=== PATIENT | female | born 2000 | race Caucasian/White ===

== ENCOUNTER 2019-10-12 06:48 | Inpatient (IN) | payer MEDICAID ==
[~2019-10-12] VITALS: Ht 142.2 cm; Wt 89.8 kg
[2019-10-12] MEDS ORDERED: LACTATED RINGERS 1,000 ML IV SCH (08:56)
[2019-10-12] MEDS ORDERED: LIDOCAINE HCL 1% 20ML VIAL (Pyxis) INJ INFIL SCH (09:00)
[2019-10-12] MEDS ORDERED: BUTORPHANOL TARTRATE 2 MG/ML VIAL IV PRN (09:00)
[2019-10-12] MEDS ORDERED: NALOXONE HCL 0.4 MG/ML 1ML VIAL IM PRN (09:00)
[2019-10-12] MEDS ORDERED: METHYLERGONOVINE MALEATE 0.2 MG/ML IM PRN (09:00)
[2019-10-12 09:42] LABS: CLARITY URINE CLOUDY (CLEAR); COLOR URINE YELLOW (YELLOW); KETONES URINE NEGATIVE (NEGATIVE); LEUKOCYTE ESTERASE URINE 1+ (NEGATIVE); NITRITE URINE NEGATIVE (NEGATIVE); OCCULT BLOOD URINE 3+ (NEGATIVE); PH URINE 6.5 (4.5-8.0); PROTEIN URINE 2+ (NEGATIVE); UROBILINOGEN URINE 0.2 E.U./dL (0.2-1.0)
[2019-10-12 09:42] LABS: BASOPHILS % 0.7 % (0.0-2.0); EOSINOPHILS % 0.6 % (0.0-5.0); HEMATOCRIT. 33.8 % (36.0-48.0); HEMOGLOBIN. 11.5 g/dL (12.0-16.0); LYMPHOCYTES % 20.1 % (20.0-50.0); MEAN CORPUSCULAR HEMOGLOBIN 27.9 pg (28.0-32.0); MEAN CORPUSCULAR VOLUME 82.3 fL (81.0-99.0); MEAN PLATELET VOLUME 9.6 fl (7.4-10.4); MONOCYTES % 7.3 % (2.0-8.0); NEUTROPHILS % 71.3 % (40.0-76.0); PLATELET 277 x1000/uL (130-400); RED BLOOD CELL COUNT 4.11 mill/uL (4.2-5.4); RED CELL DISTRIBUTION WIDTH 13.5 % (11.6-14.6)
[2019-10-12] MEDS: DEXT 5%/LR + PITOCIN 20UNITS/L 1,000 ML IV SCH (09:49)
[2019-10-12 09:50] LABS: INR 0.9; PARTIAL THROMBOPLASTIN TIME 27.5 sec (23.4-31.0); PROTHROMBIN TIME 9.9 sec (9.6-11.0)
[2019-10-12 10:00] LABS: *AMPHETAMINES SCREEN URINE NEGATIVE (NEGATIVE)
[2019-10-12 10:01] LABS: *BARBITURATES SCREEN URINE NEGATIVE (NEGATIVE); *BENZODIAZEPINES SCREEN URINE NEGATIVE (NEGATIVE); *COCAINE SCREEN URINE NEGATIVE (NEGATIVE); METHADONE URINE SCREEN NEGATIVE (NEGATIVE); OPIATES URINE SCREEN NEGATIVE (NEGATIVE); PHENCYCLIDINE URINE SCREEN NEGATIVE (NEGATIVE)
[2019-10-12 10:02] LABS: CANNABINOID URINE SCREEN NEGATIVE (NEGATIVE)
[2019-10-12 10:59] LABS: HEPATITIS B SURFACE ANTIGEN NEGATIVE
[2019-10-12 12:12] LABS: D-DIMER 1.18 mg/L FEU (<0.50)
[2019-10-12 12:20] LABS: CHLORIDE 107 mEq/L (98-107)
[2019-10-12] MEDS: LACTATED RINGERS 1,000 ML IV SCH ×2 (13:18→22:12)
[2019-10-13] MEDS: LACTATED RINGERS 1,000 ML IV SCH (00:29)
[2019-10-13] MEDS ORDERED: ROPIVACAINE HCL 2MG/ML (0.2%) 200ML BOTTLE IR ONE (00:45)
[2019-10-13] MEDS ORDERED: ROPIVACAINE HCL/PF EPIDURAL 200 ML EPI PRN (00:45)
[2019-10-13] MEDS ORDERED: FENTANYL CITRATE/PF 50MCG/ML 2ML VIAL ONE (01:09)
[2019-10-13] MEDS ORDERED: BUPIVACAINE HCL/PF 0.25% (2.5MG/ML) 10ML ONE (01:56)
[2019-10-13 11:25] LABS: BASOPHILS % 0.5 % (0.0-2.0); HEMATOCRIT. 35.2 % (36.0-48.0); HEMOGLOBIN. 11.9 g/dL (12.0-16.0); LYMPHOCYTES % 7.8 % (20.0-50.0); MEAN CORPUSCULAR HEMOGLOBIN 27.9 pg (28.0-32.0); MEAN CORPUSCULAR VOLUME 82.3 fL (81.0-99.0); MEAN PLATELET VOLUME 9.7 fl (7.4-10.4); NEUTROPHILS % 83.7 % (40.0-76.0); PLATELET 264 x1000/uL (130-400); RED BLOOD CELL COUNT 4.28 mill/uL (4.2-5.4); RED CELL DISTRIBUTION WIDTH 13.7 % (11.6-14.6)
[2019-10-13 11:26] LABS: CHLORIDE 108 mEq/L (98-107)
[2019-10-13 11:46] LABS: D-DIMER 2.27 mg/L FEU (<0.50); INR 0.9; PARTIAL THROMBOPLASTIN TIME 28.1 sec (23.4-31.0); PROTHROMBIN TIME 9.9 sec (9.6-11.0)
[2019-10-13] MEDS: DEXT 5%/LR + PITOCIN 20UNITS/L 1,000 ML IV SCH (11:48)
[2019-10-13] MEDS ORDERED: GLYCERIN/WITCH HAZEL LEAF MEDICATED PAD TOP PRN (12:30)
[2019-10-13] MEDS ORDERED: IBUPROFEN 400MG TABLET PO PRN (12:30)
[2019-10-13] MEDS ORDERED: LANOLIN OINT 7GM TUBE TOP PRN (12:30)
[2019-10-13] MEDS ORDERED: DIPHENHYDRAMINE 25MG CAPSULE PO PRN (12:30)
[2019-10-13] MEDS ORDERED: ACETAMINOPHEN WITH CODEINE 300/30MG TABLET PO PRN (12:30)
[2019-10-13] MEDS ORDERED: IBUPROFEN 800MG TABLET PO PRN (12:30)
[2019-10-13] MEDS ORDERED: BENZOCAINE/LANOLIN/ALOE VERA SPRAY TOP PRN (12:30)
[2019-10-13] MEDS ORDERED: HEMORRHOIDAL SUPP PR PRN (12:30)
[2019-10-13] MEDS ORDERED: BISACODYL 10MG SUPP PR PRN (12:30)
[2019-10-13] MEDS: MAGNESIUM/ALUMINUM HYDROXIDE/SIMETHICONE 30ML UDC PO SCH ×2 (13:00→17:26)
[2019-10-13] MEDS: SIMETHICONE 80MG TABLET CHEW PO SCH ×2 (13:00→17:26)
[2019-10-13] MEDS ORDERED: DEXT 5%/LR + PITOCIN 20UNITS/L 1,000 ML IV SCH (13:00)
[2019-10-13 13:30] VITALS: BP 135/87
[2019-10-13 14:00] VITALS: BP 150/97
[2019-10-13] MEDS ORDERED: CARBOPROST TROMETHAMINE 250 MCG/ML AMPUL IM SCH (14:15)
[2019-10-13 15:00] VITALS: BP 136/84
[2019-10-13] MEDS ORDERED: MEASLES,MUMPS&RUBELLA VACCINE 1 VIAL SUBCUT ONE (16:30)
[2019-10-13] MEDS: ACETAMINOPHEN WITH CODEINE 300/30MG TABLET PO PRN (18:02)
[2019-10-13 19:30] VITALS: BP 127/65
[2019-10-13] MEDS ORDERED: DOCUSATE SODIUM 100MG CAPSULE PO SCH (21:00)
[2019-10-14] VITALS: BP 125/63
[2019-10-14] MEDS ORDERED: FERR325T23 PO (03:11)
[2019-10-14] MEDS ORDERED: IBUP-2030 PO (03:11)
[2019-10-14] MEDS ORDERED: PREN-55 MT (03:13)
[2019-10-14 06:41] LABS: BASOPHILS % 0.5 % (0.0-2.0); EOSINOPHILS % 0.7 % (0.0-5.0); HEMATOCRIT. 23.3 % (36.0-48.0); HEMOGLOBIN. 7.8 g/dL (12.0-16.0); LYMPHOCYTES % 17.9 % (20.0-50.0); MEAN CORPUSCULAR HEMOGLOBIN 27.7 pg (28.0-32.0); MEAN CORPUSCULAR VOLUME 82.5 fL (81.0-99.0); MEAN PLATELET VOLUME 9.1 fl (7.4-10.4); MONOCYTES % 8.7 % (2.0-8.0); NEUTROPHILS % 72.2 % (40.0-76.0); PLATELET 220 x1000/uL (130-400); RED BLOOD CELL COUNT 2.82 mill/uL (4.2-5.4); RED CELL DISTRIBUTION WIDTH 13.8 % (11.6-14.6)
[2019-10-14 07:30] VITALS: BP 118/80
[2019-10-14] MEDS: MAGNESIUM/ALUMINUM HYDROXIDE/SIMETHICONE 30ML UDC PO SCH ×2 (07:30→12:25)
[2019-10-14] MEDS: SIMETHICONE 80MG TABLET CHEW PO SCH ×2 (08:00→12:25)
[2019-10-14] MEDS: ACETAMINOPHEN WITH CODEINE 300/30MG TABLET PO PRN ×2 (09:16→20:32)
[2019-10-14] MEDS: PRENATAL VIT/FE FUMARATE/FA TABLET PO SCH (09:16)
[2019-10-14] MEDS: FERROUS SULFATE 325MG TABLET PO SCH ×3 (09:16→16:53)
[2019-10-14 15:44] VITALS: BP 125/65
[2019-10-14 20:00] VITALS: BP 114/56
[2019-10-15 04:00] VITALS: BP 124/61
[2019-10-15] MEDS: ACETAMINOPHEN WITH CODEINE 300/30MG TABLET PO PRN (06:25)
[2019-10-15] MEDS: MAGNESIUM/ALUMINUM HYDROXIDE/SIMETHICONE 30ML UDC PO SCH (07:30)
[2019-10-15 08:00] VITALS: BP 126/77
[2019-10-15] MEDS: SIMETHICONE 80MG TABLET CHEW PO SCH (08:00)
[2019-10-15] MEDS: FERROUS SULFATE 325MG TABLET PO SCH (09:09)
[2019-10-15] MEDS: PRENATAL VIT/FE FUMARATE/FA TABLET PO SCH (09:09)
== END 2019-10-15 11:00 | disposition home or self-care (01) | DRG 560 ==
LOC: 8 EST LDRP 06:48 → OBSVTOIN 06:48 → 8EST 10-13 14:12
PROVIDERS: ADMIT Obstetrics & Gynecology; ATTEND Obstetrics & Gynecology
PROC: 10E0XZZ Delivery of Products of Conception, External Approach (ICD-10-PCS; principal; 2019-10-13)
PROC: 0KQM0ZZ Repair Perineum Muscle, Open Approach (ICD-10-PCS; 2019-10-13)
PROC: 3E0R3BZ Introduction of Anesthetic Agent into Spinal Canal, Percutaneous Approach (ICD-10-PCS; 2019-10-13)
PROC: 00HU33Z Insertion of Infusion Device into Spinal Canal, Percutaneous Approach (ICD-10-PCS; 2019-10-13)
DX: O48.0 Post-term pregnancy (principal); D62 Acute posthemorrhagic anemia; O99.214 Obesity complicating childbirth; E66.01 Morbid (severe) obesity due to excess calories; O70.1 Second degree perineal laceration during delivery; O90.81 Anemia of the puerperium; Z3A.40 40 weeks gestation of pregnancy; Z37.0 Single live birth
CPT/HCPCS: 36415; 76805; 76818; 80053; 80305; 81003; 84550; 85025; 85379; 85384; 86592; 86703; 86762; 86850; 86900; 87340; 90471; 90707; 96374; G0378; J0595; J2590; J2795; J3010; J3490; J7120